=== PATIENT | male | born 1955 | race Hispanic/Latino ===

== ENCOUNTER 2017-10-04 22:36 | Inpatient (IN) | payer SELFPAY ==
[~2017-10-04] VITALS: Ht 175.3 cm; Wt 92.9 kg
[2017-10-04] MEDS ORDERED: AMIODARONE HCL 50 MG/ML 3 ML VIAL ONE ×2 (22:50→23:48)
[2017-10-04] MEDS ORDERED: ADENOSINE 3 MG/ML 2ML VIAL IV ONE (22:51)
[2017-10-04 22:57] LABS: BASOPHILS % (AUTO) 0.8 % (0.0-5.0); EOSINOPHILS % (AUTO) 7.9 % (0.0-8.0); HEMATOCRIT 46.1 % (42-54); LYMPHOCYTES % (AUTO) 23.1 % (21.0-51.0); MEAN CORPUSCULAR HEMOGLOBIN 32.7 pg (27.0-33.0); MEAN CORPUSCULAR HGB CONC 34.4 g/dL (32.0-36.0); MEAN CORPUSCULAR VOLUME 95.1 fL (79-99); MONOCYTES % (AUTO) 9.2 % (3.0-13.0); PLATELET COUNT (AUTO) 280 K/uL (130-400); RED BLOOD CELL COUNT(AUTO) 4.85 MIL/uL (4.50-6.20); WHITE BLOOD COUNT (AUTO) 17.4 K/uL (4.8-10.8)
[2017-10-04] MEDS ORDERED: SODIUM CHLORIDE 0.9% 50 ML IV ONE (22:59)
[2017-10-04 23:06] LABS: CREATININE 1.5 mg/dL (0.5-1.5)
[2017-10-04 23:07] LABS: INR 1.08 (0.85-1.15); PARTIAL THROMBOPLASTIN TIME 38.8 SEC (26.3-35.5); PROTHROMBIN TIME 11.3 SEC (9.6-11.6)
[2017-10-04 23:11] LABS: ALBUMIN 4.1 g/dL (3.5-5.0); BILIRUBIN,TOTAL 0.8 mg/dL (0.2-1.0); TOTAL PROTEIN, SERUM 7.7 g/dL (6.0-8.3)
[2017-10-04] MEDS ORDERED: ETOMIDATE 2 MG/ML 10 ML VIAL ONE (23:19)
[2017-10-05] VITALS (8 sets, daily range): BP systolic 100–117; BP diastolic 58–77
[2017-10-05] MEDS ORDERED: NITROGLYCERIN 1GM/1 INCH PACKET TD SCH (05:45)
[2017-10-05] MEDS ORDERED: ENOXAPARIN SODIUM 40 MG/0.4 ML SYRINGE SQ ONE (10:10)
[2017-10-05] MEDS ORDERED: FAMOTIDINE 20MG TAB 20 MG TAB ONE (10:10)
[2017-10-05] MEDS: ENOXAPARIN SODIUM 40 MG/0.4 ML SYRINGE SQ SCH (17:30)
[2017-10-05] MEDS: FAMOTIDINE 20MG TAB 20 MG TAB PO SCH (17:30)
[2017-10-05] MEDS ORDERED: METO50TA18 PO (19:01)
[2017-10-05] MEDS ORDERED: ATOR40TA71 PO (19:01)
[2017-10-05] MEDS ORDERED: LISI10TA7 PO (19:01)
[2017-10-05] MEDS ORDERED: DABI150C PO (19:01)
[2017-10-06] VITALS (23 sets, daily range): BP systolic 74–161; BP diastolic 38–89
[2017-10-06 03:47] LABS: HEMATOCRIT 39.2 % (42-54); MEAN CORPUSCULAR HEMOGLOBIN 32.8 pg (27.0-33.0); MEAN CORPUSCULAR HGB CONC 34.7 g/dL (32.0-36.0); MEAN CORPUSCULAR VOLUME 94.6 fL (79-99); PLATELET COUNT (AUTO) 175 K/uL (130-400); RED BLOOD CELL COUNT(AUTO) 4.14 MIL/uL (4.50-6.20); RED CELL DISTRIBUTION WIDTH 13.3 % (11.0-15.5); WHITE BLOOD COUNT (AUTO) 11.3 K/uL (4.8-10.8)
[2017-10-06 04:25] LABS: CREATINE KINASE MB 23.1 ng/mL (0.5-3.6); CREATININE 1.1 mg/dL (0.5-1.5); MAGNESIUM 1.8 mg/dL (1.80-2.40); POTASSIUM 3.8 mmol/L (3.5-5.1)
[2017-10-06 04:28] LABS: TROPONIN I 9.75 ng/mL (0.00-0.06)
[2017-10-06] MEDS: FAMOTIDINE 20MG TAB 20 MG TAB PO SCH (09:00)
[2017-10-06] MEDS: ENOXAPARIN SODIUM 40 MG/0.4 ML SYRINGE SQ SCH (09:00)
[2017-10-06] MEDS ORDERED: SODIUM CHLORIDE 0.9% 500ML 500 ML IV SCH (09:15)
[2017-10-06] MEDS ORDERED: ISOVUE-370 50ML VIAL IV ONE (12:28)
[2017-10-06] MEDS ORDERED: HEPARIN SODIUM 1000UNIT/ML 10ML VIAL ONE (12:28)
[2017-10-06] MEDS ORDERED: IOPAMIDOL-370 100 ML VIAL IV ONE (12:29)
[2017-10-06] MEDS ORDERED: LIDOCAINE HCL-MPF 2% 5ML VIAL ONE (12:29)
[2017-10-06] MEDS ORDERED: ASPIRIN 325MG EC TAB 325 MG TABLET.DR PO ONE (13:29)
[2017-10-06] MEDS ORDERED: CLOPIDOGREL BISULFATE 300 MG TAB ONE (13:29)
[2017-10-06] MEDS ORDERED: ONDANSETRON HCL MDV 20ML 2 MG/ML VIAL IVP PRN (14:00)
[2017-10-06] MEDS ORDERED: TEMAZEPAM 30 MG CAP PO PRN (14:00)
[2017-10-06] MEDS ORDERED: ACETAMINOPHEN-CODEINE 300/30MG TAB PO PRN ×2 (14:00)
[2017-10-06] MEDS ORDERED: ONDANSETRON HCL MDV 20ML 2 MG/ML VIAL IVP SCH (14:00)
[2017-10-06] MEDS: CARVEDILOL 3.125 MG TABLET PO SCH (20:28)
[2017-10-07 03:50] VITALS: BP 122/76
[2017-10-07 04:08] LABS: CREATININE 1.1 mg/dL (0.5-1.5); HEMATOCRIT 40.1 % (42-54); MEAN CORPUSCULAR HEMOGLOBIN 33.3 pg (27.0-33.0); MEAN CORPUSCULAR HGB CONC 35.1 g/dL (32.0-36.0); MEAN CORPUSCULAR VOLUME 94.8 fL (79-99); PLATELET COUNT (AUTO) 196 K/uL (130-400); POTASSIUM 3.8 mmol/L (3.5-5.1); RED BLOOD CELL COUNT(AUTO) 4.22 MIL/uL (4.50-6.20); RED CELL DISTRIBUTION WIDTH 13.1 % (11.0-15.5); WHITE BLOOD COUNT (AUTO) 9.9 K/uL (4.8-10.8)
[2017-10-07 07:28] VITALS: BP 125/81
[2017-10-07] MEDS: FAMOTIDINE 20MG TAB 20 MG TAB PO SCH (08:16)
[2017-10-07] MEDS: CARVEDILOL 3.125 MG TABLET PO SCH (08:16)
[2017-10-07] MEDS: CLOPIDOGREL BISULFATE 75 MG TAB PO SCH (08:16)
[2017-10-07] MEDS: ASPIRIN 81MG TAB.CHEW PO SCH (08:16)
[2017-10-07] MEDS: ENOXAPARIN SODIUM 40 MG/0.4 ML SYRINGE SQ SCH (08:17)
[2017-10-07 11:04] VITALS: BP 137/81
[2017-10-07 16:23] VITALS: BP 133/76
[2017-10-07 19:31] VITALS: BP 125/82
[2017-10-07] MEDS: METOPROLOL TARTRATE 50 MG TAB PO SCH (20:41)
[2017-10-07 23:55] VITALS: BP 110/80
[2017-10-08 03:46] VITALS: BP 118/80
[2017-10-08] MEDS ORDERED: LISI-617 PO (06:53)
[2017-10-08] MEDS ORDERED: CLOP75TA14 PO (06:53)
[2017-10-08] MEDS ORDERED: METO50 PO (06:53)
[2017-10-08] MEDS ORDERED: ASPI-1005 PO (06:53)
[2017-10-08 07:28] VITALS: BP 132/75
[2017-10-08] MEDS: FAMOTIDINE 20MG TAB 20 MG TAB PO SCH (09:00)
[2017-10-08] MEDS: ENOXAPARIN SODIUM 40 MG/0.4 ML SYRINGE SQ SCH (09:00)
[2017-10-08] MEDS: CLOPIDOGREL BISULFATE 75 MG TAB PO SCH (09:10)
[2017-10-08] MEDS: ATORVASTATIN CALCIUM 40 MG TABLET PO SCH (09:10)
[2017-10-08] MEDS: DABIGATRAN ETEXILATE MESYLATE 150 MG CAPSULE PO SCH ×2 (09:10→21:04)
[2017-10-08] MEDS: ASPIRIN 81MG TAB.CHEW PO SCH (09:11)
[2017-10-08] MEDS: METOPROLOL TARTRATE 50 MG TAB PO SCH ×2 (09:11→21:04)
[2017-10-08] MEDS: LISINOPRIL 5 MG TABLET PO SCH (09:11)
[2017-10-08 11:23] VITALS: BP 122/81
[2017-10-08 16:01] VITALS: BP 125/81
[2017-10-08 19:32] VITALS: BP 136/79
[2017-10-08 23:30] VITALS: BP 134/66
[2017-10-09 03:50] VITALS: BP 116/74
[2017-10-09 07:40] VITALS: BP 128/82
[2017-10-09] MEDS: ENOXAPARIN SODIUM 40 MG/0.4 ML SYRINGE SQ SCH (09:00)
[2017-10-09] MEDS: FAMOTIDINE 20MG TAB 20 MG TAB PO SCH (09:00)
[2017-10-09] MEDS: CLOPIDOGREL BISULFATE 75 MG TAB PO SCH (09:43)
[2017-10-09] MEDS: ASPIRIN 81MG TAB.CHEW PO SCH (09:43)
[2017-10-09] MEDS: DABIGATRAN ETEXILATE MESYLATE 150 MG CAPSULE PO SCH (09:43)
[2017-10-09] MEDS: METOPROLOL TARTRATE 50 MG TAB PO SCH (09:43)
[2017-10-09] MEDS: LISINOPRIL 5 MG TABLET PO SCH (09:43)
[2017-10-09] MEDS: ATORVASTATIN CALCIUM 40 MG TABLET PO SCH (09:43)
[2017-10-09 11:15] VITALS: BP 129/83
[2017-10-09 16:38] VITALS: BP 132/91
== END 2017-10-09 19:13 | disposition home or self-care (01) | DRG 246 ==
LOC: EDH 22:36 → EDHIP 22:37 → 2BH 10-05 17:05 → 2AH 10-06 15:05
PROVIDERS: ADMIT Family Medicine; ATTEND Family Medicine
PROC: 4A023N7 Measurement of Cardiac Sampling and Pressure, Left Heart, Percutaneous Approach (ICD-10-PCS; principal; 2017-10-06)
PROC: 027034Z Dilation of Coronary Artery, One Artery with Drug-eluting Intraluminal Device, Percutaneous Approach (ICD-10-PCS; 2017-10-06)
PROC: B2151ZZ Fluoroscopy of Left Heart using Low Osmolar Contrast (ICD-10-PCS; 2017-10-06)
PROC: B2111ZZ Fluoroscopy of Multiple Coronary Arteries using Low Osmolar Contrast (ICD-10-PCS; 2017-10-06)
DX: I21.4 Non-ST elevation (NSTEMI) myocardial infarction (principal); I49.01 Ventricular fibrillation; I47.2 Ventricular tachycardia; N18.3 Chronic kidney disease, stage 3 (moderate); I13.0 Hypertensive heart and chronic kidney disease with heart failure and stage 1 through stage 4 chronic kidney disease, or unspecified chronic kidney disease; I47.1 Supraventricular tachycardia; Q23.1 Congenital insufficiency of aortic valve; I50.9 Heart failure, unspecified; I48.0 Paroxysmal atrial fibrillation; E78.5 Hyperlipidemia, unspecified; I25.10 Atherosclerotic heart disease of native coronary artery without angina pectoris; I34.0 Nonrheumatic mitral (valve) insufficiency; I45.9 Conduction disorder, unspecified; Z95.5 Presence of coronary angioplasty implant and graft; Z79.01 Long term (current) use of anticoagulants; Z79.82 Long term (current) use of aspirin
CPT/HCPCS: 36415; 71045; 80048; 80053; 80061; 82550; 82553; 82948; 83735; 83874; 83880; 84484; 85025; 85027; 85347; 85610; 85730; 93005; 93306; 93458; 99291; C1760; C1769; C1887; C1894; C9600; J0153; J0282; J1644; J1650; J3490; J7040; Q9967